=== PATIENT | male | born 1990 | race Caucasian/White ===

== ENCOUNTER 2016-06-18 05:57 | Day surgery (SDC) | payer BC ==
[~2016-06-18] VITALS: Ht 172.7 cm; Wt 122.5 kg
--- OUTSIDE RECORDS SUMMARY | 2016-06-18 06:04 | XMS REPORT | Continuity of Care Document ---
Author Author [facility] Organization [facility] Address Unknown Phone Unavailable Care Team Providers Care Mortgage Originator Name Role Phone ISIDORO GREENFIELD MD PCP Insurance Providers Payer Name Policy Number Subscriber Name Relationship [facility] [id number] Conchis Hooks 20 Self / Same As Patient Advance Directives Directive Response Recorded Date/Time Advance Directives No 06/10/16 9:29am Resuscitation Status Full Code 06/10/16 9:29am Problems No problem information available. Medications No known medications. Social History Social History Problem Response Recorded Date/Time Alcohol Use Rarely Uses 06/10/2016 9:29am Recreational Drug Use No 06/10/2016 9:29am Recent Foreign Travel No 06/10/2016 9:29am Recent Infectious Disease Exposure No 06/10/2016 9:29am Smoking Status Never a Smoker 06/10/2016 9:29am Recent Hopitalizations No 06/10/2016 9:29am Query Response Start Date Stop Date Smoking Status Never a Smoker Hospital Discharge Instructions No hospital discharge instructions. Plan of Care Discharge Date 06/10/16 9:33am Prescriptions See Medication Section Functional Status No functional status results. Allergies, Adverse Reactions, Alerts No known allergies. Immunizations No immunization records. Vital Signs Acute Vital Signs Vital Response Date/Time Height (Feet) 5 feet 06/10/2016 9:29am Height (Inches) 8.00 inches 06/10/2016 9:29am Height (Calculated Centimeters) 172.286668 cm 06/10/2016 9:29am Weight (Pounds) 270 pounds 06/10/2016 9:29am Weight (Ounces) 0.0 oz 06/10/2016 9:29am Weight (Calculated Grams) 737551.94 gm 06/10/2016 9:29am Weight (Calculated Kilograms) 122.041673 kilograms 06/10/2016 9:29am Calculated BMI 41.1 06/10/2016 9:29am Results No known relevant diagnostic tests, laboratory data and/or discharge summary. Procedures No known history of procedures. Encounters Encounter Location Arrival/Admit Date Discharge/Depart Date Attending Provider Departed Clinic [facility] 06/10/16 9:07am 06/10/16 9: 33am JIGNA CALLES MD
--- OUTSIDE RECORDS SUMMARY | 2016-06-18 06:04 | XMS REPORT | Continuity of Care Document ---
Author Author [facility] Organization [facility] Address Unknown Phone Unavailable Care Team Providers Care Crystal Mounter Name Role Phone ISIDORO GREENFIELD MD PCP Insurance Providers Payer Name Policy Number Subscriber Name Relationship [facility] [id number] Conchis Hooks 20 Self / Same As [...] 8.00 inches 06/10/2016 9:29am Height (Calculated Centimeters) 172.338697 cm 06/10/2016 9:29am Weight (Pounds) 270 pounds 06/10/2016 9:29am Weight (Ounces) 0.0 oz 06/10/2016 9:29am Weight (Calculated Grams) 183184.94 gm 06/10/2016 9:29am Weight (Calculated Kilograms) 122.995803 kilograms 06/10/2016 9:29am Calculated BMI 41.1 06/10/2016 9:29am Results No known relevant diagnostic tests, laboratory data and/or discharge summary. Procedures No known history of procedures. Encounters Encounter Location Arrival/Admit Date Discharge/Depart Date Attending Provider Departed Clinic [facility] 06/10/16 9:07am 06/10/16 9: 33am JIGNA CALLES MD
[2016-06-18] MEDS ORDERED: BUP/EPI 0.25% 1:200,000 (MARCAINE) 30 ML VIAL ONE (06:40)
[2016-06-18] MEDS ORDERED: GENTAMICIN 40 MG/ML 2 ML INJ SDV ONE (06:41)
[2016-06-18] MEDS ORDERED: ceFAZolin 2 GM IV (SDC ONLY) 50 ML ONE (06:49)
[2016-06-18 06:50] VITALS: BP 150/97
[2016-06-18] MEDS: LACTATED RINGERS 1,000 ML IV PRN ×2 (06:50→08:49)
[2016-06-18] MEDS ORDERED: MIDAZOLAM 2 MG/2 ML (VERSED) VIAL ONE (06:54)
[2016-06-18] MEDS ORDERED: fentaNYL INJECTION 100 MCG/2 ML AMP ONE ×3 (06:54→09:45)
[2016-06-18] MEDS ORDERED: LIDOCAINE PF 2% 10 ML (XYLOCAINE) AMP ONE (06:54)
[2016-06-18] MEDS ORDERED: proPOfol 200 MG/20 ML (DIPRIVAN) VIAL IV ONE ×2 (06:54→09:18)
[2016-06-18] MEDS ORDERED: SEVOFLURANE (ULTANE) 15 ML INHAL SOLN ONE ×2 (06:54→09:17)
[2016-06-18] MEDS ORDERED: LACTATED RINGERS 1,000 ML IV ONE ×2 (06:54→09:18)
[2016-06-18] MEDS ORDERED: ONDANSETRON 4 MG/2 ML (SDV) Z0FRAN ONE (06:54)
[2016-06-18] MEDS ORDERED: ROCURONIUM 50 MG/5 ML (ZEMURON) VIAL IV ONE (06:55)
[2016-06-18] MEDS ORDERED: ceFAZolin 2GM/50 ML DEXTROSE (PREMIX) IV ONE (07:00)
[2016-06-18] MEDS ORDERED: DEXMEDETOMIDINE PRE-MIX (OR) 50 ML IV ONE ×2 (07:03→09:07)
--- NOTE | 2016-06-18 09:21 | Progress Note-Post Operative ---
Post-Operative Progess Note Quality Assurance Supervisor Body PAULIE Stratton Pre-Operative Diagnosis STENOSIS, SCIATICA Post-Operative Diagnosis Same Post-Op Procedure Note Date of Procedure: Jun 18, 2016 Name of Procedure: Right L5-6 Microdiscectomy and annular repair Procedure Note/Findings HNP Anesthesia Type GETA Estimated blood loss (mL): JIGNA Zhao MD Jun 18, 2016 9:21 am
[2016-06-18] MEDS ORDERED: HYDR-3816 PO (09:24)
[2016-06-18] MEDS ORDERED: BACL10TA PO (09:24)
[2016-06-18] MEDS ORDERED: fentaNYL INJECTION 250 MCG/5 ML AMP IV PRN (10:00)
[2016-06-18] MEDS ORDERED: PROMETHAZINE INJ 25 MG/ML (PHENERGAN) AMP IV PRN (10:00)
[2016-06-18] MEDS: morphine INJ 10 MG/ML 1ML (SYR OR VIAL) IV PRN ×2 (10:00→10:09)
[2016-06-18] MEDS ORDERED: ONDANSETRON 4 MG/2 ML (SDV) Z0FRAN IV PRN (10:00)
[2016-06-18 10:40] VITALS: BP 94/65
[2016-06-18] MEDS ORDERED: HYDROcodone/APAP 7.5 MG/325 MG (LORTAB, LORCET PLUS) TABLET PO ONE (10:50)
[2016-06-18 11:10] VITALS: BP 104/65
[2016-06-18 11:40] VITALS: BP 113/50
[2016-06-18 12:50] VITALS: BP 113/50
--- NOTE | 2016-06-18 13:05 | Diagnostic Imaging Report ---
INDICATION: Low back pain. DISCUSSION: Fluoroscopic support was provided during intraoperative lumbar surgery. Single crosstable lateral view of the spine is submitted demonstrating a metallic marker at the posterior level of the L4-L5 disc space. Please see the operative report for full detail. FLUOROSCOPY TIME: 1.3 seconds. IMPRESSION: 1. Intraoperative lumbar surgery. Dictated by: Dictated on workstation # [id number]
--- NOTE | 2016-06-19 09:15 | OPERATIVE REPORT ---
PROCEDURE PHYSICIAN: JIGNA VOSS DATE OF PROCEDURE: 06/18/2016 PREOPERATIVE DIAGNOSES: 1. Lumbar disk herniation. 2. Right leg sciatica. POSTOPERATIVE DIAGNOSIS: 1. Lumbar disk herniation. 2. Right leg sciatica. PROCEDURE PERFORMED: Right L5/6 microdiskectomy with annular repair. DATE AND TIME OF SURGERY: Please see anesthesia record. IMPLANTS USED: Anulex Xclose device with 2 tissue repair bands and 4T anchors. SURGEON: Dr. Voss. SEMICONDUCTOR WAFERS SAW OPERATOR: ADILENE Stratton. ROLE OF DATA OFFICER: Aid in retraction of procedure, aid in implantation, instrumentation and wound closure. ANESTHESIA: General endotracheal. ESTIMATED BLOOD LOSS: Minimal. IV FLUIDS: Please see anesthesia record. ANTIBIOTICS: Ancef. COMPLICATIONS: None. INDICATION FOR THE PROCEDURE: Mr. Gipson is a 26-year-old male with severe back and right leg pain, moderate disc herniation, failure to conservative therapy, desires operative treatment. NEURAL MONITORING: Standard intraoperative neural monitoring carried out by means real-time continuous high quality bidirectional remote audio and visual communication was carried out by both the claim technician and surgeon to Dr. Vásquez with SSEPs, EMGs and TOFs carried out continuously and stable throughout the procedure. DESCRIPTION OF THE PROCEDURE: The patient was taken to the preop holding area and brought back to the operative suite. After adequate induction of general anesthetic, preoperative antibiotics, carefully turned prone on Raphael table. Careful padding to all extremities, sterile prep and drape the posterior lumbar spine. Attention was directed to midline, incision was made overlying L5/6 and confirmed on imaging to be the second mobile segment up from a 6 lumbar vertebral segment spine and once this was confirmed, shadow line retractor was placed deep for the remainder of the case. High speed bur was used to create a hemilaminotomy on the right side. Ligamentum flavum was excised. Thecal sac and root retracted overlying a large bulbous disk herniation. A small annulotomy was created. Multiple fragments of disk material removed from a subligamentous region. Once the diskectomy was sufficient, the annulus was inspected and felt that due to the size and scope of the defect, it was beneficial to repair it. Therefore an Xclose system with 2 tissue repair bands and 4T anchors were utilized in cross fashion across annular defect to close it down. Hemostasis was achieved. The wound was closed in layers. FloSeal and bipolar electrocautery were used. Neural monitoring was stable. The patient tolerated procedure well and was transferred to the recovery room. Job ID: [id number] Dictated Date: 06/18/2016 09:34:54 Child Welfare Specialist Date: 06/19/2016 08:51:36 / flores
== END 2016-06-18 12:50 | disposition home or self-care (01) ==
LOC: SDC 05:57
PROVIDERS: ATTEND Orthopaedic Surgery Orthopaedic Surgery of the Spine
DX: M51.16 Intervertebral disc disorders with radiculopathy, lumbar region (principal)
CPT/HCPCS: 87081

== ENCOUNTER → 2019-12-17 | Outpatient (CLI) | payer BC ==
[~2019-12-17] MED LIST: BACL10TA PO; HYDR-34 PO
[2019-12-17 09:56] LABS: BASOPHILS % (AUTO) 1 % (0-10); EOSINOPHILS # (AUTO) 0.2 10^3/uL (0.0-0.3); EOSINOPHILS % (AUTO) 3 % (0-10); HEMATOCRIT 44 % (40-54); HEMOGLOBIN 15.3 G/DL (13.3-17.7); LYMPHOCYTES # (AUTO) 1.5 X 10^3 (1.0-4.0); LYMPHOCYTES % (AUTO) 29 % (12-44); MEAN CORPUSCULAR HEMOGLOBIN 30 PG (25-34); MEAN CORPUSCULAR HGB CONC 35 G/DL (32-36); MEAN CORPUSCULAR VOLUME 86 FL (80-99); MEAN PLATELET VOLUME 10.5 FL (7.4-10.4); MONOCYTES # (AUTO) 0.4 X 10^3 (0.0-1.0); MONOCYTES % (AUTO) 8 % (0-12); NEUTROPHILS # (AUTO) 3.1 X 10^3 (1.8-7.8); NEUTROPHILS % (AUTO) 59 % (42-75); PLATELET COUNT 204 10^3/uL (130-400); RED CELL DISTRIBUTION WIDTH 12.8 % (10.0-14.5); WHITE BLOOD COUNT 5.2 10^3/uL (4.3-11.0)
[2019-12-17 10:14] LABS: CHLORIDE 106 MMOL/L (98-107); SODIUM 140 MMOL/L (135-145)
[2019-12-17 10:15] LABS: ALBUMIN 4.6 GM/DL (3.2-4.5)
[2019-12-17 10:16] LABS: CALCIUM 9.4 MG/DL (8.5-10.1)
[2019-12-17 10:17] LABS: GLUCOSE 94 MG/DL (70-105); TOTAL PROTEIN 7.1 GM/DL (6.4-8.2); TRIGLYCERIDES 109 MG/DL (<150); VLDL CHOLESTEROL 22 MG/DL (5-40)
[2019-12-17 10:18] LABS: CARBON DIOXIDE 26 MMOL/L (21-32)
[2019-12-17 10:21] LABS: ALKALINE PHOSPHATASE 68 U/L (40-136); CREATININE SERUM 0.95 MG/DL (0.60-1.30); GFR ESTIMATED > 60
[2019-12-17 10:22] LABS: BUN/CREATININE RATIO 14; CHOLESTEROL 143 MG/DL (< 200)
[2019-12-17 10:23] LABS: HDL CHOLESTEROL 45 MG/DL (40-60)
[2019-12-17 10:24] LABS: ALANINE AMINOTRANSFERASE 25 U/L (0-55)
== END ==
LOC: LAB 09:42
PROVIDERS: ATTEND Nurse Practitioner Family
DX: Z00.00 Encounter for general adult medical examination without abnormal findings (principal); E78.00 Pure hypercholesterolemia, unspecified
CPT/HCPCS: 36415; 80053; 80061; 85025